=== PATIENT | female | born 1930 | race American Indian/Alaskan Native ===

== ENCOUNTER 2017-05-05 08:17 | Outpatient (CLI) | payer MEDICARE, BC ==
[2017-05-05] MEDS ORDERED: SILVER NITRATE TP ONE ×2 (09:20→09:25)
== END 2017-05-05 08:18 | disposition home or self-care (01) ==
LOC: WOUND 08:17
PROVIDERS: ATTEND Surgery
DX: T81.89XA Other complications of procedures, not elsewhere classified, initial encounter (principal); E11.9 Type 2 diabetes mellitus without complications; L92.9 Granulomatous disorder of the skin and subcutaneous tissue, unspecified; I50.9 Heart failure, unspecified; X58.XXXA Exposure to other specified factors, initial encounter; Y93.89 Activity, other specified; Y92.89 Other specified places as the place of occurrence of the external cause; Y99.8 Other external cause status
CPT/HCPCS: 17250; G0463

== ENCOUNTER 2017-05-10 08:49 | Outpatient (CLI) | payer MEDICARE, BC ==
[2017-05-10] MEDS ORDERED: XYLOCAINE TOPICAL 4% TP ONE ×2 (08:56→08:58)
[2017-05-10] MEDS ORDERED: SILVER NITRATE TP ONE ×2 (08:56→08:58)
== END 2017-05-10 08:50 | disposition home or self-care (01) ==
LOC: WOUND 08:49
PROVIDERS: ATTEND Internal Medicine
DX: T81.89XD Other complications of procedures, not elsewhere classified, subsequent encounter (principal); E78.4 Other hyperlipidemia; K21.0 Gastro-esophageal reflux disease with esophagitis; I11.0 Hypertensive heart disease with heart failure; I50.20 Unspecified systolic (congestive) heart failure; Z85.038 Personal history of other malignant neoplasm of large intestine; Y83.8 Other surgical procedures as the cause of abnormal reaction of the patient, or of later complication, without mention of misadventure at the time of the procedure
CPT/HCPCS: 17250

== ENCOUNTER 2017-05-17 08:55 | Outpatient (CLI) | payer MEDICARE, BC ==
[2017-05-17] MEDS ORDERED: SILVER NITRATE TP ONE (09:12)
[2017-05-17] MEDS ORDERED: XYLOCAINE TOPICAL 4% TP ONE ×2 (09:18→09:19)
== END 2017-05-17 08:56 | disposition home or self-care (01) ==
LOC: WOUND 08:55
PROVIDERS: ATTEND Internal Medicine
DX: T81.89XD Other complications of procedures, not elsewhere classified, subsequent encounter (principal); E78.4 Other hyperlipidemia; I11.0 Hypertensive heart disease with heart failure; I50.20 Unspecified systolic (congestive) heart failure; K21.0 Gastro-esophageal reflux disease with esophagitis; L92.9 Granulomatous disorder of the skin and subcutaneous tissue, unspecified; Z85.038 Personal history of other malignant neoplasm of large intestine; Y83.8 Other surgical procedures as the cause of abnormal reaction of the patient, or of later complication, without mention of misadventure at the time of the procedure

== ENCOUNTER 2017-05-24 09:10 | Outpatient (CLI) | payer MEDICARE, BC ==
[2017-05-24] MEDS ORDERED: XYLOCAINE TOPICAL 4% TP ONE (09:29)
[2017-05-24] MEDS ORDERED: SILVER NITRATE TP ONE (09:33)
== END 2017-05-24 09:11 | disposition home or self-care (01) ==
LOC: WOUND 09:10
PROVIDERS: ATTEND Internal Medicine
DX: T81.89XD Other complications of procedures, not elsewhere classified, subsequent encounter (principal); I11.0 Hypertensive heart disease with heart failure; E08.40 Diabetes mellitus due to underlying condition with diabetic neuropathy, unspecified; I50.20 Unspecified systolic (congestive) heart failure; E78.4 Other hyperlipidemia; K21.0 Gastro-esophageal reflux disease with esophagitis; L92.9 Granulomatous disorder of the skin and subcutaneous tissue, unspecified; Y83.8 Other surgical procedures as the cause of abnormal reaction of the patient, or of later complication, without mention of misadventure at the time of the procedure
CPT/HCPCS: 97602

== ENCOUNTER 2017-05-31 09:05 | Outpatient (CLI) | payer MEDICARE, BC ==
[2017-05-31] MEDS ORDERED: XYLOCAINE TOPICAL 4% TP ONE (09:23)
[2017-05-31] MEDS ORDERED: SILVER NITRATE TP ONE (09:41)
== END 2017-05-31 09:06 | disposition home or self-care (01) ==
LOC: WOUND 09:05
PROVIDERS: ATTEND Internal Medicine
DX: T81.89XD Other complications of procedures, not elsewhere classified, subsequent encounter (principal); L98.491 Non-pressure chronic ulcer of skin of other sites limited to breakdown of skin; I11.0 Hypertensive heart disease with heart failure; I50.20 Unspecified systolic (congestive) heart failure; K21.0 Gastro-esophageal reflux disease with esophagitis; E78.4 Other hyperlipidemia; Y83.8 Other surgical procedures as the cause of abnormal reaction of the patient, or of later complication, without mention of misadventure at the time of the procedure

== ENCOUNTER 2017-06-03 10:50 | Outpatient (CLI) | payer MEDICARE, BC ==
--- NOTE | 2017-06-03 16:16 | Cat Scan Report ---
FINAL REPORT PROCEDURE: CT ABDOMEN W CON TECHNIQUE: Computerized axial tomography of the abdomen was performed following the IV injection of iodinated nonionic contrast. HISTORY: ANTERIOR ABDOMINAL WALL ABCESS COMPARISON: No prior studies are available for comparison. FINDINGS: There is a mesh visualized in the anterior abdominal wall. There are postsurgical changes seen adjacent to the mesh which I suspect represents fibrosis. I do not see a focal fluid collection in the areas covered on this exam. Small amount of dependent atelectasis is visualized. Calcifications are seen in the coronary arteries indicating atherosclerotic disease. The heart is enlarged. No evidence of pericardial effusion. There are multiple low-density nodules scattered throughout the liver all of which have a very similar appearance suggesting multiple hepatic cyst. These measure up to 1 centimeter in size. Gallbladder is surgically absent. Intrahepatic ducts are not distended. The adrenal glands, the pancreas and spleen are unremarkable. There are several small low-density nodules seen projecting from the renal cortex of both kidneys which appear to represent renal cortical cyst. A large cyst also appears to be present involving the lower 3rd of the left kidney measuring 5.4 centimeters. Atherosclerotic changes are seen in the abdominal aorta and visualized iliac arteries without evidence of aneurysm. Nonspecific subcentimeter lymph nodes are seen in the retroperitoneum. These do not appear to be pathologically enlarged. Bowel loops show no focal abnormalities. No acute bony abnormalities are seen. There is mild grade 1 degenerative spondylolisthesis L4 in relation L5. I do not see evidence of spondylolysis. IMPRESSION: Postsurgical changes seen involving the anterior abdominal wall. A surgical mesh is in place. There is mild increased density adjacent to the mesh likely representing scarring or fibrosis. No fluid collection is seen that would suggest an abscess. No hernia is visualized. Prior cholecystectomy. 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
== END 2017-06-03 10:51 | disposition home or self-care (01) ==
LOC: CT 10:50
PROVIDERS: ATTEND Internal Medicine
DX: L02.211 Cutaneous abscess of abdominal wall (principal); N28.1 Cyst of kidney, acquired; I51.7 Cardiomegaly; J98.11 Atelectasis; K76.89 Other specified diseases of liver; I25.10 Atherosclerotic heart disease of native coronary artery without angina pectoris; I70.0 Atherosclerosis of aorta; M43.16 Spondylolisthesis, lumbar region; Z90.49 Acquired absence of other specified parts of digestive tract
CPT/HCPCS: 36415; 74160; 82565; 84520; Q9967

== ENCOUNTER 2017-06-07 09:11 | Outpatient (CLI) | payer MEDICARE, BC | END 2017-06-07 09:12 | disposition home or self-care (01) | LOC: WOUND 09:11 | PROVIDERS: ATTEND Internal Medicine | DX: T81.89XD Other complications of procedures, not elsewhere classified, subsequent encounter (principal); E11.622 Type 2 diabetes mellitus with other skin ulcer; L98.491 Non-pressure chronic ulcer of skin of other sites limited to breakdown of skin; I50.20 Unspecified systolic (congestive) heart failure; I11.0 Hypertensive heart disease with heart failure; E78.4 Other hyperlipidemia; L40.8 Other psoriasis; K21.0 Gastro-esophageal reflux disease with esophagitis; Z85.038 Personal history of other malignant neoplasm of large intestine; Y83.8 Other surgical procedures as the cause of abnormal reaction of the patient, or of later complication, without mention of misadventure at the time of the procedure | CPT/HCPCS: 99213; G0463 ==

== ENCOUNTER 2017-11-21 12:42 | Emergency (ER) | payer BC, MEDICARE ==
--- NOTE | 2017-11-21 14:31 | Emergency Department Report ---
ED ENT HPI - General Chief complaint: Nosebleed Stated complaint: NOSE BLEED Time Seen by Provider: 11/21/17 14:09 Source: patient, EMS Mode of arrival: Stretcher Limitations: No Limitations - History of Present Illness Initial comments: Patient is a 87 years old female with history of hypertension and diabetes. Patient brought to the ER and EMS for evaluation of epistaxis started yesterday. Patient stated that she was passing clots this morning. By the time patient gets to the ER bleeding is completely resolved. Patient denied any dizziness or lightheadedness. She denied shortness of breath or chest pain. Patient stated that she is not taking any blood in medicine except for baby aspirin. complaint: epistaxis -: Last night Severity: moderate Context-Epistaxis: aspirin use - Related Data Home Medications Medication Instructions Recorded Confirmed Last Taken Metformin HCl [Metformin HCl ER] 500 mg PO BID 04/17/13 03/21/15 11/01/13 10:00 500 Aspirin [Aspirin BABY CHEW TAB] 81 mg PO QDAY 11/02/13 03/21/15 11/01/13 10:00 81 ISOSORBIDE MONOnitrate [Imdur] 30 mg PO QDAY 11/02/13 03/21/15 11/01/13 10:00 60 Metoprolol [Lopressor TAB] 50 mg PO DAILY 11/02/13 03/21/15 11/01/13 21:00 25 Rosuvastatin Calcium [Crestor] 20 mg PO QHS 11/02/13 03/21/15 11/01/13 21:00 40 hydroCHLOROthiazide [Hctz] 12.5 mg PO QDAY 11/02/13 03/21/15 11/01/13 10:00 25 Methotrexate 1 tab PO QWEEK 03/21/15 03/21/15 Unknown Multivitamin W/Iron, Minerals 1 tab PO DAILY 03/21/15 03/21/15 Unknown Doxycycline 1 tab PO BID 03/28/15 03/28/15 Unknown Indomethacin 1 tab PO Q4-6H PRN 03/28/15 03/28/15 Unknown Previous Rx's Medication Instructions Recorded Last Taken Type HYDROcodone/ACETAMINOPHEN 1 tab PO Q6H PRN #20 tablet 11/02/13 11/01/13 09:00 Rx [HYDROcodone-Acetaminophen 5-300 mg] Fluticasone [Flonase] 1 spray NS QDAY #1 bottle 11/21/17 Unknown Rx Allergies Allergy/AdvReac Type Severity Reaction Status Date / Time amoxicillin [Amoxicillin] Allergy Rash Verified 11/21/17 12:57 atorvastatin calcium Allergy Rash Verified 11/21/17 12:57 [From Lipitor] Penicillins Allergy Rash Verified 11/21/17 12:57 Sulfa (Sulfonamide Allergy Unknown Verified 11/21/17 12:57 Antibiotics) ED Dental HPI - General Chief complaint: Nosebleed Stated complaint: NOSE BLEED Time Seen by Provider: 11/21/17 14:09 Source: patient, EMS Mode of arrival: Stretcher Limitations: No Limitations - Related Data Home Medications Medication Instructions Recorded Confirmed Last Taken Metformin HCl [Metformin HCl ER] 500 mg PO BID 04/17/13 03/21/15 11/01/13 10:00 500 Aspirin [Aspirin BABY CHEW TAB] 81 mg PO QDAY 11/02/13 03/21/15 11/01/13 10:00 81 ISOSORBIDE MONOnitrate [Imdur] 30 mg PO QDAY 11/02/13 03/21/15 11/01/13 10:00 60 Metoprolol [Lopressor TAB] 50 mg PO DAILY 11/02/13 03/21/15 11/01/13 21:00 25 Rosuvastatin Calcium [Crestor] 20 mg PO QHS 11/02/13 03/21/15 11/01/13 21:00 40 hydroCHLOROthiazide [Hctz] 12.5 mg PO QDAY 11/02/13 03/21/15 11/01/13 10:00 25 Methotrexate 1 tab PO QWEEK 03/21/15 03/21/15 Unknown Multivitamin W/Iron, Minerals 1 tab PO DAILY 03/21/15 03/21/15 Unknown Doxycycline 1 tab PO BID 03/28/15 03/28/15 Unknown Indomethacin 1 tab PO Q4-6H PRN 03/28/15 03/28/15 Unknown Previous Rx's Medication Instructions Recorded Last Taken Type HYDROcodone/ACETAMINOPHEN 1 tab PO Q6H PRN #20 tablet 11/02/13 11/01/13 09:00 Rx [HYDROcodone-Acetaminophen 5-300 mg] Fluticasone [Flonase] 1 spray NS QDAY #1 bottle 11/21/17 Unknown Rx Allergies Allergy/AdvReac Type Severity Reaction Status Date / Time amoxicillin [Amoxicillin] Allergy Rash Verified 11/21/17 12:57 atorvastatin calcium Allergy Rash Verified 11/21/17 12:57 [From Lipitor] Penicillins Allergy Rash Verified 11/21/17 12:57 Sulfa (Sulfonamide Allergy Unknown Verified 11/21/17 12:57 Antibiotics) ED Review of Systems ROS: Stated complaint: NOSE BLEED Other details as noted in HPI Comment: All other systems reviewed and negative Constitutional: denies: chills, fever ENT: epistaxis Respiratory: denies: cough, orthopnea, shortness of breath, SOB with exertion Cardiovascular: denies: chest pain, palpitations, dyspnea on exertion Gastrointestinal: denies: abdominal pain, nausea, vomiting, diarrhea, constipation, hematemesis, melena, hematochezia Musculoskeletal: denies: back pain Neurological: denies: headache, weakness, numbness, paresthesias, confusion, abnormal gait ED Past Medical Hx - Past Medical History Previous Medical History?: Yes Hx Hypertension: Yes Hx Heart Attack/AMI: No Hx Diabetes: Yes (DX 2009) Hx Deep Vein Thrombosis: No Hx Liver Disease: No Hx Renal Disease: No Hx Arthritis: Yes Hx Seizures: No Hx Asthma: No Hx COPD: No Additional medical history: heart trouble - Surgical History Past Surgical History?: Yes Hx Pacemaker: No Hx Internal Defibrillator: No Hx Cholecystectomy: Yes Additional Surgical History: hernia repair hysterectomy abd surg x 6 - Social History Smoking Status: Never Smoker Substance Use Type: None - Medications Home Medications: Home Medications Medication Instructions Recorded Confirmed Last Taken Type Metformin HCl [Metformin HCl ER] 500 mg PO BID 04/17/13 03/21/15 11/01/13 10:00 History 500 Aspirin [Aspirin BABY CHEW TAB] 81 mg PO QDAY 11/02/13 03/21/15 11/01/13 10:00 History 81 HYDROcodone/ACETAMINOPHEN 1 tab PO Q6H PRN #20 tablet 11/02/13 03/21/15 09:00 Rx [HYDROcodone-Acetaminophen 5-300 mg] ISOSORBIDE MONOnitrate [Imdur] 30 mg PO QDAY 11/02/13 03/21/15 11/01/13 10:00 History 60 Metoprolol [Lopressor TAB] 50 mg PO DAILY 09/04/14 01/21/16 09/03/14 21:00 History 25 Rosuvastatin Calcium [Crestor] 20 mg PO QHS 11/02/13 03/21/15 11/01/13 21:00 History 40 hydroCHLOROthiazide [Hctz] 12.5 mg PO QDAY 11/02/13 03/21/15 11/01/13 10:00 History 25 Methotrexate 1 tab PO QWEEK 03/21/15 03/21/15 Unknown History Multivitamin W/Iron, Minerals 1 tab PO DAILY 03/21/15 03/21/15 Unknown History Doxycycline 1 tab PO BID 03/28/15 03/28/15 Unknown History Indomethacin 1 tab PO Q4-6H PRN 03/28/15 03/28/15 Unknown History Fluticasone [Flonase] 1 spray NS QDAY #1 bottle 11/21/17 Unknown Rx ED Physical Exam - General Limitations: No Limitations General appearance: alert, in no apparent distress - Head Head exam: Present: atraumatic, normocephalic, normal inspection - Eye Eye exam: Present: normal appearance, PERRL - ENT ENT exam: Present: other (dried blood to the left nastril, no active bleeding) - Neck Neck exam: Present: normal inspection, full ROM. Absent: tenderness, meningismus, lymphadenopathy, thyromegaly - Respiratory Respiratory exam: Present: normal lung sounds bilaterally. Absent: respiratory distress, wheezes, rales, rhonchi, stridor, chest wall tenderness, accessory muscle use, decreased breath sounds, prolonged expiratory - Cardiovascular Cardiovascular Exam: Present: regular rate, normal rhythm, normal heart sounds - GI/Abdominal GI/Abdominal exam: Present: soft, normal bowel sounds. Absent: distended, tenderness, guarding, rebound, rigid, organomegaly, mass, bruit, pulsatile mass , hernia - Extremities Exam Extremities exam: Present: normal inspection, full ROM, normal capillary refill. Absent: pedal edema, calf tenderness - Neurological Exam Neurological exam: Present: alert, oriented X3, normal gait, reflexes normal - Skin Skin exam: Present: warm, intact, normal color ED Course Vital Signs 11/21/17 11/21/17 11/21/17 12:51 13:00 14:30 Pulse Rate 77 68 66 Respiratory 16 16 16 Rate Blood Pressure 122/49 Blood Pressure 109/51 126/72 [Right] O2 Sat by Pulse 97 95 95 Oximetry 11/21/17 16:15 Pulse Rate 62 Respiratory 16 Rate Blood Pressure Blood Pressure 118/71 [Right] O2 Sat by Pulse 96 Oximetry - Reevaluation(s) Reevaluation #1: 11/21/17 15:37 Patient is in no acute distress. No evidence of epistaxis so far. ED Medical Decision Making - Lab Data Result diagrams: 11/21/17 14:55 11/21/17 14:55 Critical care attestation.: If time is entered above; I have spent that time in minutes in the direct care of this critically ill patient, excluding procedure time. ED Disposition Clinical Impression: Epistaxis Disposition: DC-01 TO HOME OR SELFCARE Is pt being admited?: No Condition: Stable Instructions: Epistaxis (ED) Prescriptions: Fluticasone [Flonase] 1 spray NS QDAY #1 bottle Referrals: PRIMARY CARE, [Primary Care Provider] - 3-5 Days
[2017-11-21 15:16] LABS: Basophils % (Auto) 0.7 % (0.0-1.8); Eosinophils # (Auto) 0.1 K/mm3 (0.0-0.4); Eosinophils % (Auto) 1.6 % (0.0-4.3); Hematocrit 36.6 % (30.3-42.9); Hemoglobin 11.9 gm/dl (10.1-14.3); Lymphocytes # (Auto) 1.3 K/mm3 (1.2-5.4); Lymphocytes % (Auto) 21.8 % (13.4-35.0); Mean Corpuscular HGB Conc 33 % (30-34); Mean Corpuscular Hemoglobin 30 pg (28-32); Mean Corpuscular Volume 91 fl (79-97); Monocytes # (Auto) 0.8 K/mm3 (0.0-0.8); Monocytes % (Auto) 13.2 % (0.0-7.3); Platelet Count 205 K/mm3 (140-440); Red Blood Count 4.01 M/mm3 (3.65-5.03); Red Cell Distribution Width 14.9 % (13.2-15.2)
[2017-11-21 15:30] LABS: Alanine Aminotransferase 7 units/L (7-56); Albumin 4.2 g/dL (3.9-5); BUN/Creatinine Ratio 22; Blood Urea Nitrogen 20 mg/dL (7-17); Calcium 9.7 mg/dL (8.4-10.2); Hemolysis Index 0
[2017-11-21 15:41] LABS: INR 1.02 (0.87-1.13); Partial Thromboplastin Time 25.4 Sec. (24.2-36.6)
[2017-11-21 17:01] VITALS: BP 118/71
== END 2017-11-21 16:30 | disposition home or self-care (01) ==
LOC: ED 12:42
DX: R04.0 Epistaxis (principal); I10 Essential (primary) hypertension; E11.9 Type 2 diabetes mellitus without complications; M19.90 Unspecified osteoarthritis, unspecified site; Z90.49 Acquired absence of other specified parts of digestive tract; Z90.710 Acquired absence of both cervix and uterus; Z79.82 Long term (current) use of aspirin; Z88.1 Allergy status to other antibiotic agents; Z88.0 Allergy status to penicillin; Z88.2 Allergy status to sulfonamides; Z88.8 Allergy status to other drugs, medicaments and biological substances
CPT/HCPCS: 36415; 80053; 85025; 85610; 85730; 99283

== ENCOUNTER 2017-12-06 21:52 | Emergency (ER) | payer MEDICARE ==
[2017-12-06 23:55] LABS: Hemoglobin 11.4 gm/dl (10.1-14.3); Mean Corpuscular HGB Conc 33 % (30-34); Mean Corpuscular Hemoglobin 30 pg (28-32); Mean Corpuscular Volume 92 fl (79-97); Platelet Count 197 K/mm3 (140-440); Red Blood Count 3.81 M/mm3 (3.65-5.03); Red Cell Distribution Width 14.6 % (13.2-15.2)
[2017-12-07 00:04] LABS: INR 0.95 (0.87-1.13)
[2017-12-07 00:05] LABS: Partial Thromboplastin Time 28.6 Sec. (24.2-36.6)
[2017-12-07 02:22] LABS: Basophils % (Manual) 0 % (0.0-1.8); Platelet Estimate Consistent w Auto; Total Cells Counted 100
[2017-12-07 06:02] VITALS: BP 140/72
[2017-12-07] MEDS ORDERED: AFRIN NS ONE (07:14)
--- NOTE | 2017-12-07 07:14 | Emergency Department Report ---
ED ENT HPI - General Chief complaint: Nosebleed Stated complaint: NOSE BLEED Time Seen by Provider: 12/07/17 07:09 Source: patient Mode of arrival: Ambulatory Limitations: No Limitations - History of Present Illness Initial comments: 87-year-old female presents to ED with nosebleed. Patient states has been having intermittent nosebleeds over the last few weeks. States saw ENT, Dr. Contreras, last week. Patient was given a prescription for a cream for the nose, and also told to use a humidifier. Patient states despite these therapies, she has still been experiencing nosebleeds. Patient states had a nosebleed last night and to the ER. No active bleeding at this time. Denies headache, dizziness or lightheadedness. MD complaint: epistaxis -: week(s) (2) Location: other (right nare) Severity: moderate Consistency: intermittent Improves with: pressure Context-Epistaxis: history of similar - Related Data Home Medications Medication Instructions Recorded Confirmed Last Taken Metformin HCl [Metformin HCl ER] 500 mg PO BID 04/17/13 03/21/15 11/01/13 10:00 500 Aspirin [Aspirin BABY CHEW TAB] 81 mg PO QDAY 11/02/13 03/21/15 11/01/13 10:00 81 ISOSORBIDE MONOnitrate [Imdur] 30 mg PO QDAY 11/02/13 03/21/15 11/01/13 10:00 60 Metoprolol [Lopressor TAB] 50 mg PO DAILY 11/02/13 03/21/15 11/01/13 21:00 25 Rosuvastatin Calcium [Crestor] 20 mg PO QHS 11/02/13 03/21/15 11/01/13 21:00 40 hydroCHLOROthiazide [Hctz] 12.5 mg PO QDAY 11/02/13 03/21/15 11/01/13 10:00 25 Methotrexate 1 tab PO QWEEK 03/21/15 03/21/15 Unknown Multivitamin W/Iron, Minerals 1 tab PO DAILY 03/21/15 03/21/15 Unknown Doxycycline 1 tab PO BID 03/28/15 03/28/15 Unknown Indomethacin 1 tab PO Q4-6H PRN 03/28/15 03/28/15 Unknown Previous Rx's Medication Instructions Recorded Last Taken Type HYDROcodone/ACETAMINOPHEN 1 tab PO Q6H PRN #20 tablet 11/02/13 11/01/13 09:00 Rx [HYDROcodone-Acetaminophen 5-300 mg] Fluticasone [Flonase] 1 spray NS QDAY #1 bottle 11/21/17 Unknown Rx Allergies Allergy/AdvReac Type Severity Reaction Status Date / Time amoxicillin [Amoxicillin] Allergy Rash Verified 11/21/17 12:57 atorvastatin calcium Allergy Rash Verified 11/21/17 12:57 [From Lipitor] Penicillins Allergy Rash Verified 11/21/17 12:57 Sulfa (Sulfonamide Allergy Unknown Verified 11/21/17 12:57 Antibiotics) ED Dental HPI - General Chief complaint: Nosebleed Stated complaint: NOSE BLEED Time Seen by Provider: 12/07/17 07:09 Source: patient Mode of arrival: Ambulatory Limitations: No Limitations - Related Data Home Medications Medication Instructions Recorded Confirmed Last Taken Metformin HCl [Metformin HCl ER] 500 mg PO BID 04/17/13 03/21/15 11/01/13 10:00 500 Aspirin [Aspirin BABY CHEW TAB] 81 mg PO QDAY 11/02/13 03/21/15 11/01/13 10:00 81 ISOSORBIDE MONOnitrate [Imdur] 30 mg PO QDAY 11/02/13 03/21/15 11/01/13 10:00 60 Metoprolol [Lopressor TAB] 50 mg PO DAILY 11/02/13 03/21/15 11/01/13 21:00 25 Rosuvastatin Calcium [Crestor] 20 mg PO QHS 11/02/13 03/21/15 11/01/13 21:00 40 hydroCHLOROthiazide [Hctz] 12.5 mg PO QDAY 11/02/13 03/21/15 11/01/13 10:00 25 Methotrexate 1 tab PO QWEEK 03/21/15 03/21/15 Unknown Multivitamin W/Iron, Minerals 1 tab PO DAILY 03/21/15 03/21/15 Unknown Doxycycline 1 tab PO BID 03/28/15 03/28/15 Unknown Indomethacin 1 tab PO Q4-6H PRN 03/28/15 03/28/15 Unknown Previous Rx's Medication Instructions Recorded Last Taken Type HYDROcodone/ACETAMINOPHEN 1 tab PO Q6H PRN #20 tablet 11/02/13 11/01/13 09:00 Rx [HYDROcodone-Acetaminophen 5-300 mg] Fluticasone [Flonase] 1 spray NS QDAY #1 bottle 11/21/17 Unknown Rx Allergies Allergy/AdvReac Type Severity Reaction Status Date / Time amoxicillin [Amoxicillin] Allergy Rash Verified 11/21/17 12:57 atorvastatin calcium Allergy Rash Verified 11/21/17 12:57 [From Lipitor] Penicillins Allergy Rash Verified 11/21/17 12:57 Sulfa (Sulfonamide Allergy Unknown Verified 11/21/17 12:57 Antibiotics) ED Review of Systems ROS: Stated complaint: NOSE BLEED Other details as noted in HPI Comment: All other systems reviewed and negative ENT: epistaxis Neurological: denies: headache, weakness ED Past Medical Hx - Past Medical History Previous Medical History?: Yes Hx Hypertension: Yes Hx Heart Attack/AMI: No Hx Diabetes: Yes (DX 2009) Hx Deep Vein Thrombosis: No Hx Liver Disease: No Hx Renal Disease: No Hx Arthritis: Yes Hx Seizures: No Hx Asthma: No Hx COPD: No Additional medical history: heart trouble - Surgical History Past Surgical History?: Yes Hx Pacemaker: No Hx Internal Defibrillator: No Hx Cholecystectomy: Yes Additional Surgical History: hernia repair hysterectomy abd surg x 6 - Social History Smoking Status: Never Smoker Substance Use Type: None - Medications Home Medications: Home Medications Medication Instructions Recorded Confirmed Last Taken Type Metformin HCl [Metformin HCl ER] 500 mg PO BID 04/17/13 03/21/15 11/01/13 10:00 History 500 Aspirin [Aspirin BABY CHEW TAB] 81 mg PO QDAY 11/02/13 03/21/15 11/01/13 10:00 History 81 HYDROcodone/ACETAMINOPHEN 1 tab PO Q6H PRN #20 tablet 11/02/13 03/21/15 09:00 Rx [HYDROcodone-Acetaminophen 5-300 mg] ISOSORBIDE MONOnitrate [Imdur] 30 mg PO QDAY 11/02/13 03/21/15 11/01/13 10:00 History 60 Metoprolol [Lopressor TAB] 50 mg PO DAILY 11/02/13 03/21/15 11/01/13 21:00 History 25 Rosuvastatin Calcium [Crestor] 20 mg PO QHS 11/02/13 03/21/15 11/01/13 21:00 History 40 hydroCHLOROthiazide [Hctz] 12.5 mg PO QDAY 11/02/13 03/21/1514 10:00 History 25 Methotrexate 1 tab PO QWEEK 03/21/15 03/21/15 Unknown History Multivitamin W/Iron, Minerals 1 tab PO DAILY 03/21/15 03/21/15 Unknown History Doxycycline 1 tab PO BID 03/28/15 03/28/15 Unknown History Indomethacin 1 tab PO Q4-6H PRN 03/28/15 03/28/15 Unknown History Fluticasone [Flonase] 1 spray NS QDAY #1 bottle 11/21/17 Unknown Rx ED Physical Exam - General Limitations: No Limitations General appearance: alert, in no apparent distress - Head Head exam: Present: atraumatic, normocephalic - Eye Eye exam: Present: normal appearance - ENT ENT exam: Present: mucous membranes moist, other (no active bleeding from nares , no dried blood present) - Neck Neck exam: Present: normal inspection - Respiratory Respiratory exam: Present: normal lung sounds bilaterally. Absent: respiratory distress - Cardiovascular Cardiovascular Exam: Present: regular rate, normal rhythm - GI/Abdominal GI/Abdominal exam: Present: soft. Absent: tenderness - Extremities Exam Extremities exam: Present: normal inspection - Neurological Exam Neurological exam: Present: alert, oriented X3 - Psychiatric Psychiatric exam: Present: normal affect, normal mood - Skin Skin exam: Present: warm, dry, intact, normal color ED Course Vital Signs 12/06/17 12/07/17 22:39 05:59 Temperature 98.7 F 98.9 F Pulse Rate 63 66 Respiratory 18 18 Rate Blood Pressure 129/59 140/72 O2 Sat by Pulse 96 96 Oximetry ED Medical Decision Making - Lab Data Result diagrams: 12/06/17 22:46 - Medical Decision Making 87-year-old female with intermittent nosebleeds over the past couple weeks. No bleeding at this time. Vital signs stable. Labs show normal hemoglobin, platelets, and coags. Afrin spray administered. Pt is advised to follow up with her ENT Dr. Contreras today. Will discharge at this time - Differential Diagnosis epistaxis Critical care attestation.: If time is entered above; I have spent that time in minutes in the direct care of this critically ill patient, excluding procedure time. ED Disposition Clinical Impression: Epistaxis Disposition: DC- TO HOME OR SELFCARE Is pt being admited?: No Condition: Stable Additional Instructions: Follow up with your Ear, Nose and Throat physician today after you leave the ER. Return to the ER if the bleeding returns and you are unable to get it to stop. Referrals: PRIMARY CARE,MD [Primary Care Provider] - 3-5 Days Time of Disposition: 07:31
== END 2017-12-07 07:48 | disposition home or self-care (01) ==
LOC: ED 21:52
DX: R04.0 Epistaxis (principal); I10 Essential (primary) hypertension; E11.9 Type 2 diabetes mellitus without complications; Z79.82 Long term (current) use of aspirin; Z88.1 Allergy status to other antibiotic agents; Z88.0 Allergy status to penicillin; Z88.2 Allergy status to sulfonamides; Z90.49 Acquired absence of other specified parts of digestive tract; Z90.710 Acquired absence of both cervix and uterus
CPT/HCPCS: 36415; 85007; 85025; 85610; 85730; 99283

== ENCOUNTER 2019-09-20 13:02 | Outpatient (CLI) | payer MEDICARE ==
[2019-09-20] MEDS ORDERED: LIDOCAINE (4%) 40 MG/ML TOPICAL SOLN 50 ML BOTTLE TP ONE (13:24)
[2019-09-20] MEDS ORDERED: SILVER NITRATE APPLICATOR 1 EA TP ONE (13:33)
== END 2019-09-20 13:03 | disposition home or self-care (01) ==
LOC: WOUND 13:02
PROVIDERS: ATTEND Surgery
DX: L02.211 Cutaneous abscess of abdominal wall (principal); S31.100D Unspecified open wound of abdominal wall, right upper quadrant without penetration into peritoneal cavity, subsequent encounter; E11.9 Type 2 diabetes mellitus without complications; I11.0 Hypertensive heart disease with heart failure; I50.9 Heart failure, unspecified; K21.9 Gastro-esophageal reflux disease without esophagitis; E78.5 Hyperlipidemia, unspecified; L40.9 Psoriasis, unspecified; M19.90 Unspecified osteoarthritis, unspecified site; Z85.038 Personal history of other malignant neoplasm of large intestine; X58.XXXD Exposure to other specified factors, subsequent encounter
CPT/HCPCS: 99214; G0463

== ENCOUNTER 2019-10-11 09:04 | Outpatient (CLI) | payer MEDICARE ==
[2019-10-11] MEDS ORDERED: LIDOCAINE (4%) 40 MG/ML TOPICAL SOLN 50 ML BOTTLE TP ONE (09:07)
[2019-10-11] MEDS ORDERED: SILVER NITRATE APPLICATOR 1 EA TP ONE (10:00)
== END 2019-10-11 09:05 | disposition home or self-care (01) ==
LOC: WOUND 09:04
PROVIDERS: ATTEND Surgery
DX: L02.211 Cutaneous abscess of abdominal wall (principal); S31.100D Unspecified open wound of abdominal wall, right upper quadrant without penetration into peritoneal cavity, subsequent encounter; E11.9 Type 2 diabetes mellitus without complications; I11.0 Hypertensive heart disease with heart failure; I50.9 Heart failure, unspecified; K21.9 Gastro-esophageal reflux disease without esophagitis; E78.5 Hyperlipidemia, unspecified; L40.0 Psoriasis vulgaris; M19.90 Unspecified osteoarthritis, unspecified site; Z85.038 Personal history of other malignant neoplasm of large intestine; X58.XXXD Exposure to other specified factors, subsequent encounter
CPT/HCPCS: 10060

== ENCOUNTER 2019-10-18 08:47 | Outpatient (CLI) | payer MEDICARE ==
[2019-10-18] MEDS ORDERED: LIDOCAINE (4%) 40 MG/ML TOPICAL SOLN 50 ML BOTTLE TP ONE (09:30)
== END 2019-10-18 08:48 | disposition home or self-care (01) ==
LOC: WOUND 08:47
PROVIDERS: ATTEND Surgery
DX: L02.211 Cutaneous abscess of abdominal wall (principal); S31.100D Unspecified open wound of abdominal wall, right upper quadrant without penetration into peritoneal cavity, subsequent encounter; E11.9 Type 2 diabetes mellitus without complications; I11.0 Hypertensive heart disease with heart failure; I50.9 Heart failure, unspecified; K21.9 Gastro-esophageal reflux disease without esophagitis; E78.5 Hyperlipidemia, unspecified; L40.0 Psoriasis vulgaris; M19.90 Unspecified osteoarthritis, unspecified site; Z85.038 Personal history of other malignant neoplasm of large intestine; X58.XXXD Exposure to other specified factors, subsequent encounter

== ENCOUNTER 2019-10-25 08:49 | Outpatient (CLI) | payer MEDICARE | END 2019-10-25 08:50 | disposition home or self-care (01) | LOC: WOUND 08:49 | PROVIDERS: ATTEND Surgery | DX: L02.211 Cutaneous abscess of abdominal wall (principal); S31.100D Unspecified open wound of abdominal wall, right upper quadrant without penetration into peritoneal cavity, subsequent encounter; E11.9 Type 2 diabetes mellitus without complications; I11.0 Hypertensive heart disease with heart failure; I50.9 Heart failure, unspecified; K21.9 Gastro-esophageal reflux disease without esophagitis; E78.5 Hyperlipidemia, unspecified; L40.0 Psoriasis vulgaris; M19.90 Unspecified osteoarthritis, unspecified site; Z85.038 Personal history of other malignant neoplasm of large intestine; X58.XXXD Exposure to other specified factors, subsequent encounter | CPT/HCPCS: 99213; G0463 ==